=== PATIENT | male | born 1955 | race Caucasian/White ===

== ENCOUNTER 2018-06-02 03:03 | Inpatient (IN) | payer OTHER ==
[2018-06-02 03:13] VITALS: BMI 23.7
--- NOTE | 2018-06-02 03:30 | C.PDOC ---
History Of Present Illness 62 year old male with PMhx of CABG x4 vessels done at [facility] presents to the ED c/o worsening SOB, chest pain for the past 2 days. Patient states he did not come earlier for evaluation due to pain was coming and going. On arrival patient had a rapid irregular heart beat. Patient denies headache, blurry vision , nausea, vomit, diarrhea, weakness, numbness. Patient has all his doctors at [facility] none local. Chief Complaint (Nursing): Shortness Of Breath History Per: Patient History/Exam Limitations: no limitations Onset/Duration Of Symptoms: Days (2) Current Symptoms Are (Timing): Still Present Initiating Event: Upper Respiratory Illness Quality: Tightness Exacerbating Factor(s): Exertion Current Respiratory Medications: See Home Med List Associated Symptoms: Heart Racing Recent travel outside of the [place]: No Additional History Per: Patient Past Medical History Reviewed: Historical Data, Nursing Documentation, Vital Signs Vital Signs: Last Vital Signs Temp 97.3 F L 06/02/18 03:13 Pulse 99 H 06/02/18 03:54 Resp 22 06/02/18 03:54 BP 142/83 06/02/18 03:54 Pulse Ox 97 06/02/18 04:09 - Medical History PMH: Asthma, HTN, Hyperlipidemia Denies: Chronic Kidney Disease Surgical History: CABG - [facility] Procedures MEASURE OF CARDIAC SAMPL & PRESSURE, L HEART, PERC APPROACH (02/20/16) PLAIN RADIOGRAPHY OF LEFT HEART USING LOW OSMOLAR CONTRAST (02/20/16) Family History: States: Unknown Family Hx - Social History Hx Alcohol Use: Yes (twice a week) Hx Substance Use: Yes (Cocaine) - Immunization History Hx Tetanus Toxoid Vaccination: No Hx Influenza Vaccination: No Hx Pneumococcal Vaccination: No Review Of Systems Constitutional: Negative for: Fever, Chills Cardiovascular: Positive for: Chest Pain. Negative for: Palpitations Respiratory: Positive for: Shortness of Breath. Negative for: Cough Gastrointestinal: Negative for: Nausea, Vomiting Skin: Negative for: Rash Neurological: Negative for: Weakness, Numbness Physical Exam - Physical Exam Appears: Non-toxic, Other (Mild respiratory distress) Skin: Normal Color, Warm, Dry Head: Atraumatic, Normacephalic Eye(s): bilateral: Normal Inspection Oral Mucosa: Moist Throat: Normal, No Erythema, No Exudate Neck: Normal ROM, Supple Chest: Symmetrical Cardiovascular: Rhythm Irregular (irregularly irregular, tachy), JVD Respiratory: Decreased Breath Sounds, Accessory Muscle Use, Rales (bibasilar third the way up), No Rhonchi, No Wheezing Gastrointestinal/Abdominal: Soft, No Tenderness, No Guarding, No Rebound Extremity: Normal ROM, No Tenderness, Pedal Edema (2+ up to mid lower leg), Capillary Refill (< 2 seconds) Pulses: Left Dorsalis Pedis: Normal, Right Dorsalis Pedis: Normal Neurological/Psych: Oriented x3, Normal Speech Gait: Steady ED Course And Treatment - Laboratory Results Result Diagrams: 06/02/18 03:38 07 03:38 ECG: Interpreted By Me, Viewed By Me ECG Rhythm: Atrial Fibrillation Interpretation Of ECG: RVR, ST depression at leads V3 and V6 lateral ischemia O2 Sat by Pulse Oximetry: 97 (ON RA) Pulse Ox Interpretation: Normal - Radiology CXR: Interpreted by Me, Viewed By Me CXR Interpretation: Yes: Cardiomegaly (s/p median sternotomy), Other (mild pulmonary vascular congestion). No: Infiltrates Medical Decision Making Medical Decision Making: Impression: Afiv RVR Plan: * EKG * Labs * trop negative * BNP 4690 * cardizem 15 mg IVP * IV fluids * Aspirin 325 mg PO * Lasix 40 mg IVP * UA Disposition - Disposition Disposition: HOSPITALIZED Disposition Time: 04:19 Condition: FAIR Forms: [facility] (Amharic) - Clinical Impression Clinical Impression: Congestive heart failure (CHF), Atrial fibrillation - Scribe Statement The provider has reviewed the documentation as recorded by the Scribe Axel Kumar All medical record entries made by the Scribe were at my direction and personally dictated by me. I have reviewed the chart and agree that the record accurately reflects my personal performance of the history, physical exam, medical decision making, and the department course for this patient. I have also personally directed, reviewed, and agree with the discharge instructions and disposition.
[2018-06-02] MEDS ORDERED: Aspirin 325 mg EC Tablets PO STA (03:32)
[2018-06-02] MEDS ORDERED: Aspirin 325 mg EC Tablets PO ONE (03:39)
[2018-06-02 03:43] LABS: BASO # 0.1 K/uL (0.0-0.2); BASO % 0.7 % (0.0-2.0); EOS # 0.1 K/uL (0.0-0.7); EOS % 0.7 % (0.0-4.0); HEMOGLOBIN 10.9 g/dL (12.0-18.0); LYMPH # 0.8 K/uL (1.0-4.3); LYMPH % 10.2 % (20.0-40.0); MEAN CELL VOLUME 80.2 fL (80.0-94.0); MEAN CORPUSCULAR HEMOGLOBIN 25.6 pg (27.0-31.0); MEAN PLATELET VOLUME 8.5 fL (7.2-11.7); MONO % 13.8 % (0.0-10.0); NEUT # 5.5 K/uL (1.8-7.0); NEUT % 74.6 % (50.0-75.0); RBC 4.26 Mil/uL (4.40-5.90); RED CELL DISTRIBUTION WIDTH 18.1 % (11.5-14.5); WHITE BLOOD COUNT 7.4 K/uL (4.8-10.8)
[2018-06-02 03:54] LABS: ALB/GLOB RATIO 1.4 (1.0-2.1); ALBUMIN 3.8 g/dL (3.5-5.0); CALCIUM 9.2 mg/dl (8.6-10.4)
[2018-06-02 04:05] LABS: TROPONIN I 0.1 ng/mL (0.00-0.120)
[2018-06-02 04:16] LABS: URINE BILIRUBIN NEGATIVE (NEGATIVE); URINE BLOOD NEGATIVE (NEGATIVE); URINE CLARITY Clear (Clear); URINE COLOR Yellow (YELLOW); URINE GLUCOSE (UA) 3+ mg/dL (Normal); URINE LEUKOCYTE ESTERASE NEG Leu/uL (Negative); URINE PROTEIN NEGATIVE (NEGATIVE); URINE UROBILINOGEN NORMAL mg/dL (0.2-1.0)
[2018-06-02] MEDS ORDERED: Dextrose 50% SYRINGE Inj (50 ml) IV PRN (05:21)
[2018-06-02] MEDS ORDERED: Glucagon Recombinant 1 mg Inj IM PRN (05:21)
--- NOTE | 2018-06-02 05:26 | CP.PCM.HP ---
<CarlostristonSusy [email or web address] - Last Filed: 06/02/18 05:32> History of Present Illness - History of Present Illness History of Present Illness: HPI: Patient is a 62 year old male with a past medical history of CHF, asthma, HTN, HLD, DM, CABG, and BPH, who presents to the hospital with complaints of chest pain bilaterally, back pain, and bilateral arm pain, with associated shortness of breath and a productive cough (white phlegm) for the past 3 days. He states his symptoms worsen with respirations, he sleeps 2 pillows, and becomes short of breath after walking less than 1 block. He also complains of bilateral leg swelling for 3 days. He was recently hospitalized at [facility] for similar symptoms last week. He recently ran out of his "lasix, heart, and blood pressure medication" and has not taken these medications for the past 3-4 days. He also admits to using +1gram of cocaine 5 days ago. The patient also complains of one week of abdominal pain worse with eating, with associated burning in his chest and throat. Review of systems positive for chest pain, palpitations, sob, cough, headache, leg swelling, abdominal pain. The patient denies fevers, chills, sore throat, dysphagia, dizziness, changes in vision, nausea/vomiting, diarrhea, dysuria, hematuria, recent sick contacts/ illnesses. PMD: none PMHx: CHF, asthma, HTN, HLD, DM, CABG (4 vessels), and BPH Surg: CABG 10years ago, cholecystectomy, appendectomy, "stomach surgery" FamHx: denies SocHx: admits to 1/2ppd x25+ years; +cocaine use, 1-2 times monthly, last use 5 days ago; drinks "3 sips of beer 2 days ago" Allergies: PCN (unknown reaction) Medications: "lasix, diabetes medication 1000mg twice a day, medication for my pressure, my heart, high cholesterol, and prostate" Present on Admission - Present on Admission Any Indicators Present on Admission: No Review of Systems - Constitutional Constitutional: Headache. absent: Chills, Fever, Weakness - EENT Eyes: absent: Change in Vision Ears: absent: Dizziness - Cardiovascular Cardiovascular: Chest Pain, Chest Pain with Activity, Dyspnea, Dyspnea on Exertion, Irregular Heart Rhythm, Leg Edema, Palpitations, Radiating Pain (to back and arms), Rapid Heart Rate. absent: Diaphoresis - Respiratory Respiratory: Cough, Dyspnea, Dyspnea on Exertion, Pain on Inspiration, Pain with Coughing - Gastrointestinal Gastrointestinal: Abdominal Pain, Constipation. absent: Diarrhea, Hematemesis, Hematochezia, Nausea, Vomiting - Genitourinary Genitourinary: absent: Dysuria, Hematuria - Musculoskeletal Musculoskeletal: Back Pain - Integumentary Integumentary: Swelling (b/l LE). absent: Rash, Unusual Bruising - Neurological Neurological: Headaches. absent: Dizziness - Endocrine Endocrine: Palpitations - Hematologic/Lymphatic Hematologic: absent: Easy Bleeding, Easy Bruising Past Patient History - Infectious Disease Hx of Infectious Diseases: None - Tetanus Immunizations Tetanus Immunization: Unknown - Past Medical History & Family History Past Medical History?: Yes - Past Social History Smoking Status: Current Some Days Smoker - CARDIAC Hx Hypertension: Yes - PULMONARY Hx Asthma: Yes - NEUROLOGICAL Hx Neurological Disorder: No - HEENT Hx HEENT Problems: No - RENAL Hx Chronic Kidney Disease: No - ENDOCRINE/METABOLIC Hx Endocrine Disorders: No Hx Diabetes Mellitus Type 1: Yes - HEMATOLOGICAL/ONCOLOGICAL Hx Blood Disorders: No - INTEGUMENTARY Hx Dermatological Problems: No - MUSCULOSKELETAL/RHEUMATOLOGICAL Hx Musculoskeletal Disorders: No Hx Falls: Yes - GASTROINTESTINAL Hx Gastrointestinal Disorders: No - GENITOURINARY/GYNECOLOGICAL Hx Genitourinary Disorders: No - PSYCHIATRIC Hx Substance Use: Yes (Cocaine) - SURGICAL HISTORY Hx Coronary Artery Bypass Graft: Yes - ANESTHESIA Hx Anesthesia: Yes Hx Anesthesia Reactions: No Hx Malignant Hyperthermia: No Meds Allergies/Adverse Reactions: Allergies Allergy/AdvReac Type Severity Reaction Status Date / Time Penicillins Allergy Intermediate Verified 06/02/18 03:12 Physical Exam - Constitutional Appears: No Acute Distress - Head Exam Head Exam: ATRAUMATIC, NORMAL INSPECTION - Eye Exam Eye Exam: EOMI, Normal appearance, PERRL - ENT Exam ENT Exam: Mucous Membranes Moist - Neck Exam Neck exam: Positive for: Normal Inspection - Respiratory Exam Respiratory Exam: Decreased Breath Sounds, Rales (b/l lower lungs), Wheezes - Cardiovascular Exam Cardiovascular Exam: Tachycardia, Irregular Rhythm, +S1, +S2. absent: REGULAR RHYTHM, JVD - GI/Abdominal Exam GI & Abdominal Exam: Normal Bowel Sounds, Soft, Tenderness (epigastric with deep palpation). absent: Distended, Firm, Guarding, Mass - Extremities Exam Extremities exam: Positive for: normal capillary refill, pedal edema (pitting edema b/l up to knees), pedal pulses present. Negative for: tenderness - Neurological Exam Neurological exam: Alert, CN II-XII Intact, Oriented x3 - Psychiatric Exam Psychiatric exam: Normal Affect, Normal Mood - Skin Skin Exam: Dry, Intact, Normal Color, Warm Results - Vital Signs Recent Vital Signs: Last Vital Signs Temp 97.3 F L 06/02/18 03:13 Pulse 97 H 06/02/18 04:44 Resp 12 06/02/18 04:44 BP 135/88 06/02/18 04:44 Pulse Ox 99 06/02/18 04:44 - Labs Result Diagrams: 06/02/18 03:38 06/02/18 03:38 Labs: Laboratory Results - last 24 hr 06/02/18 06/02/18 06/02/18 03:38 03:38 04:11 WBC 7.4 D RBC 4.26 L Hgb 10.9 L Hct 34.1 L MCV 80.2 D MCH 25.6 L MCHC 32.0 L RDW 18.1 H Plt Count 168 MPV 8.5 Neut % (Auto) 74.6 Lymph % (Auto) 10.2 L [place] % (Auto) 13.8 H Eos % (Auto) 0.7 Baso % (Auto) 0.7 Neut # (Auto) 5.5 Lymph # (Auto) 0.8 L [place] # (Auto) 1.0 H Eos # (Auto) 0.1 Baso # (Auto) 0.1 Sodium 140 Potassium 4.7 Chloride 102 Carbon Dioxide 26 Anion Gap 17 BUN 46 H Creatinine 1.7 H Est GFR ( Amer) 50 Est GFR (Non-Af Amer) 41 Random Glucose 313 H Calcium 9.2 Total Bilirubin 2.2 H AST 82 H ALT 80 H D Alkaline Phosphatase 152 H Troponin I 0.1000 NT-Pro-B Natriuret Pep 4690 H Total Protein 6.5 Albumin 3.8 Globulin 2.7 Albumin/Globulin Ratio 1.4 Urine Color Yellow Urine Clarity Clear Urine pH 5.0 Ur Specific [place] 1.008 Urine Protein Negative Urine Glucose (UA) 3+ H Urine Ketones Negative Urine Blood Negative Urine Nitrate Negative Urine Bilirubin Negative Urine Urobilinogen Normal Ur Leukocyte Esterase Neg Urine WBC (Auto) 1 Urine RBC (Auto) < 1 Assessment & Plan - Assessment and Plan (Free Text) Plan: Chest pain, r/o ACS Hx of CABG Hx of cocaine abuse Troponinx1: negative, 0.1 EKG: afib w/rvr @134bpm F/u troponin & EKGs #2, #3 A1c: f/u Lipid panel: f/u TSH/Free T4: f/u UDS: f/u Cardiology consulted, Dr. Walker; help appreciated Medications: - ASA 81mg PO daily - Plavix 75mg PO daily - Crestor 2.5mg PO HS - Lisinopril 5mg PO daily - Norvasc 5mg PO daily Dyspnea Likely secondary to CHF exacerbation Hx of asthma CXR: f/u BNP: 4670 Lasix 40mg IV daily O2 via NC prn Cardiology consulted, Dr Walker; help appreciated Afib Admitted to telemetry Continue Cardizem drip Cardiology consulted, Dr Walker; help appreciated Continue to monitor DM Home medication: Metformin 1000mg PO BID Accuchecks Hypoglycemic protocol ISS-medium A1c: f/u Continue to monitor HTN Continue home medication: Norvsac 5mg PO daily, Lisinopril 5mg PO daily Continue to monitor on telemetry HLD Continue home medication: Crestor 2.5mg PO HS Lipid panel: f/u Prophylaxis DVT: no SCDs due to LE edema; Plavix GI: Pepcid 20mg po daily Low carb, heart healthy 2g Na diet <Abundio Lange - Last Filed: 06/02/18 06:31> Results - Vital Signs Recent Vital Signs: Last Vital Signs Temp 97.3 F L 06/02/18 03:13 Pulse 97 H 06/02/18 04:44 Resp 12 06/02/18 04:44 BP 135/88 06/02/18 04:44 Pulse Ox 99 06/02/18 04:44 - Labs Result Diagrams: 06/02/18 03:38 06/02/18 03:38 Labs: Laboratory Results - last 24 hr 06/02/18 06/02/18 06/02/18 03:38 03:38 04:11 WBC 7.4 D RBC 4.26 L Hgb 10.9 L Hct 34.1 L MCV 80.2 D MCH 25.6 L MCHC 32.0 L RDW 18.1 H Plt Count 168 MPV 8.5 Neut % (Auto) 74.6 Lymph % (Auto) 10.2 L [place] % (Auto) 13.8 H Eos % (Auto) 0.7 Baso % (Auto) 0.7 Neut # (Auto) 5.5 Lymph # (Auto) 0.8 L [place] # (Auto) 1.0 H Eos # (Auto) 0.1 Baso # (Auto) 0.1 Sodium 140 Potassium 4.7 Chloride 102 Carbon Dioxide 26 Anion Gap 17 BUN 46 H Creatinine 1.7 H Est GFR ( Amer) 50 Est GFR (Non-Af Amer) 41 Random Glucose 313 H Calcium 9.2 Total Bilirubin 2.2 H AST 82 H ALT 80 H D Alkaline Phosphatase 152 H Troponin I 0.1000 NT-Pro-B Natriuret Pep 4690 H Total Protein 6.5 Albumin 3.8 Globulin 2.7 Albumin/Globulin Ratio 1.4 Urine Color Yellow Urine Clarity Clear Urine pH 5.0 Ur Specific [place] 1.008 Urine Protein Negative Urine Glucose (UA) 3+ H Urine Ketones Negative Urine Blood Negative Urine Nitrate Negative Urine Bilirubin Negative Urine Urobilinogen Normal Ur Leukocyte Esterase Neg Urine WBC (Auto) 1 Urine RBC (Auto) < 1 Assessment & Plan - Date & Time Date: 06/02/18 (I have seen and examined the patient. I agree with the findings and plan of care as documented by Dr. Lindquist. Patient with chest pain, CHF exacerbation, and A fib with RVR. ROMIx3 with EKG. Aspirin and Statin. Continue home meds. Check UDS. Lasix IV. Continue Cardizem drip at current rate. Monitor for acute changes.) Time: 06:30 Attending/Attestation - Attestation I have personally seen and examined this patient.: Yes I have fully participated in the care of the patient.: Yes I have reviewed all pertinent clinical information: Yes
[2018-06-02 07:01] VITALS: RESP 20
[2018-06-02 07:03] LABS: BARBITURATES, UR NEGATIVE (NEGATIVE); BENZODIAZEPINES, UR NEGATIVE (NEGATIVE); OPIATES, UR NEGATIVE (NEGATIVE); PHENCYCLIDINE, UR NEGATIVE (NEGATIVE)
[2018-06-02 07:16] LABS: T4 11.1 ug/dL (5.5-11.0)
[2018-06-02] MEDS: (Novolin R) Insulin Human Regular 100 units/ml vial SC SCH ×4 (07:28→21:44)
[2018-06-02] MEDS ORDERED: (Novolin R) Insulin Human Regular 100 units/ml vial ONE ×2 (07:30→13:20)
--- NOTE | 2018-06-02 09:52 | RAD ---
PROCEDURE: CHEST RADIOGRAPH, 1 VIEW HISTORY: Chest pain COMPARISON: 08/13/2016. FINDINGS: LUNGS: The lungs are well inflated and clear. PLEURA: No pneumothorax or pleural fluid seen. CARDIOVASCULAR: There is severe cardiomegaly. Status post CABG. OSSEOUS STRUCTURES: No significant abnormalities. VISUALIZED UPPER ABDOMEN: Normal. OTHER FINDINGS: None. IMPRESSION: No active pulmonary disease. Severe cardiomegaly.
--- NOTE | 2018-06-02 13:30 | CP.PCM.PN ---
Subjective - Date & Time of Evaluation Date of Evaluation: 06/02/18 Time of Evaluation: 11:10 - Subjective Subjective: PGY-[address] Travis service Patient is seen and examined at bedside. Patient is sleepy and struggles to stay awake during encounter. Pt states feeling better compared to time of admission. Patient states chest pain and SOB is getting better. Patient denies Fever, chills, headache, Chest pain, nausea, vomiting, diarrhea or constipation. Patient is luxembourgish speaker. Objective - Vital Signs/Intake and Output Vital Signs (last 24 hours): Temp Pulse Resp BP Pulse Ox 98 F 73 20 124/91 H 97 06/02/18 09:50 06/02/18 09:50 06/02/18 09:50 06/02/18 09:50 06/02/18 09:50 Intake and Output: 06/02/18 06/02/18 06:59 18:59 Output Total 400 Balance -400 - Medications Medications: Current Medications Amlodipine Besylate (Norvasc) 5 mg PO DAILY [facility] Last Admin: 06/02/18 10:11 Dose: 5 mg Apixaban (Eliquis) 5 mg PO BID [facility] Last Admin: 06/02/18 12:08 Dose: 5 mg Aspirin (Aspirin Chewable) 81 mg PO DAILY [facility] Last Admin: 06/02/18 10:07 Dose: Not Given Clopidogrel Bisulfate (Plavix) 75 mg PO DAILY [facility] Last Admin: 06/02/18 10:12 Dose: 75 mg Dextrose (Dextrose 50% Inj) 0 ml IV STAT PRN; Protocol PRN Reason: Hypoglycemia Protocol Dextrose (Glutose 15) 0 gm PO ONCE PRN; Protocol PRN Reason: Hypoglycemia Protocol Furosemide (Lasix) 40 mg IVP DAILY [facility] Last Admin: 06/02/18 11:00 Dose: Not Given Glucagon (Glucagen Diagnostic Kit) 0 mg IM STAT PRN; Protocol PRN Reason: Hypoglycemia Protocol Dextrose (Dextrose 5% In Water 1000 Ml) 1,000 mls @ 0 mls/hr IV .Q0M PRN; Protocol; Per Protocol PRN Reason: Hypoglycemia Protocol Diltiazem HCl 125 mg/ Dextrose 125 mls @ 5 mls/hr IV .Q24H [facility] PRN Reason: 5 MG/HR Last Admin: 06/02/18 07:01 Dose: 5 mls/hr Insulin Human Regular (Novolin R) 0 unit SC ACHS [facility] PRN Reason: Protocol Last Admin: 06/02/18 13:00 Dose: 3 u Lisinopril (Zestril) 5 mg PO DAILY [facility] Last Admin: 06/02/18 10:12 Dose: 5 mg Pneumococcal Polyvalent Vaccine (Pneumovax 23 Vaccine) 0.5 ml IM .ONCE ONE Stop: 06/04/18 10:01 Rosuvastatin Calcium (Crestor) 2.5 mg PO HS [facility] - Labs Labs: 06/02/18 03:38 06/02/18 03:38 - Constitutional Appears: Non-toxic, No Acute Distress - Head Exam Head Exam: ATRAUMATIC, NORMAL INSPECTION, NORMOCEPHALIC - Eye Exam Eye Exam: EOMI, Normal appearance - Neck Exam Neck Exam: Full ROM - Respiratory Exam Respiratory Exam: Clear to Ausculation Bilateral, NORMAL BREATHING PATTERN - Cardiovascular Exam Cardiovascular Exam: REGULAR RHYTHM, +S1, +S2 - GI/Abdominal Exam GI & Abdominal Exam: Soft, Tenderness, Normal Bowel Sounds. absent: Distended, Firm Additional comments: abdominal pain - Extremities Exam Extremities Exam: Normal Inspection, Pedal Edema. absent: Tenderness - Neurological Exam Additional comments: Sleepy during examination - Psychiatric Exam Psychiatric exam: Normal Mood - Skin Skin Exam: Intact, Normal Color Assessment and Plan - Assessment and Plan (Free Text) Plan: Chest pain, r/o ACS Hx of CABG Hx of cocaine abuse Urine Drug screen : + cocaine metabolites Troponin x 2: negative. F/U troponin x 1 F/U Echo F/U CMP tomorrow, check Potassium levels EKG: afib w/rvr @134bpm EKG #2: afib with premature ventricular or abberrantly conducted complex, Left axis deviation, HR: 79 A1c: 10.2 Lipid panel: Trigycerides 60, Cholesterol 173, LDL 90, HDL 46 TSH/Free T4: 4.39/11.1 Cardiology consulted, Dr. Walker; help appreciated Medications: - ASA 81mg PO daily - Plavix 75mg PO daily - Crestor 2.5mg PO HS - Lisinopril 5mg PO daily - Norvasc 5mg PO daily Dyspnea Likely secondary to CHF exacerbation Hx of asthma CXR: significant cardiomegaly BNP: 4670 D/C Lasix drip, Start Lasix 40mg PO BID O2 via NC prn Cardiology consulted, Dr Walker; help appreciated Afib Admitted to telemetry D/C Eliz alvarado. Start Cardizem 30 mg PO Qdaily Cardiology consulted, Dr Walker; help appreciated Continue to monitor DM Home medication: Metformin 1000mg PO BID Accuchecks Hypoglycemic protocol ISS-medium A1c: f/u Continue to monitor HTN Continue home medication: Norvsac 5mg PO daily, Lisinopril 5mg PO daily Continue to monitor on telemetry HLD Continue home medication: Crestor 2.5mg PO HS Lipid panel: f/u Prophylaxis DVT: no SCDs due to LE edema; Plavix GI: Pepcid 20mg po daily Low carb, heart healthy 2g Na diet
[2018-06-02 15:01] LABS: CK-MB 3.37 ng/mL (0.0-3.38); TROPONIN I 0.093 ng/mL (0.00-0.120)
[2018-06-02 17:53] LABS: TROPONIN I 0.089 ng/mL (0.00-0.120)
--- NOTE | 2018-06-02 19:46 | CARD ---
APPROVED REPORT EKG Measurement Heart [id number] <Conclusion> Atrial fibrillation with premature ventricular or aberrantly conducted complexes Left axis deviation ST & T wave abnormality, consider lateral ischemia Prolonged QT Abnormal ECG
--- NOTE | 2018-06-02 19:46 | CARD ---
APPROVED REPORT EKG Measurement Heart [id number] <Conclusion> Atrial fibrillation with rapid ventricular response Left axis deviation ST & T wave abnormality, consider lateral ischemia Abnormal ECG
--- NOTE | 2018-06-02 19:47 | CARD ---
APPROVED REPORT EKG Measurement Heart [id number] <Conclusion> Atrial fibrillation with rapid ventricular response Left axis deviation Nonspecific ST and T wave abnormality Abnormal ECG
[2018-06-02] MEDS: Rosuvastatin Calcium 2.5 mg Tab PO SCH (21:41)
--- NOTE | 2018-06-03 08:09 | CP.PCM.CON ---
History of Present Illness - History of Present Illness History of Present Illness: CC afib w/ sob HPI Patient is a 62 year old male with a past medical history of CHF, asthma, HTN, HLD, DM, CABG, and BPH, who presents to the hospital with complaints of chest pain bilaterally, back pain, and bilateral arm pain, with associated shortness of breath and a productive cough (white phlegm) for the past 3 days. He states his symptoms worsen with respirations, he sleeps 2 pillows, and becomes short of breath after walking less than 1 block. He also complains of bilateral leg swelling for 3 days. He was recently hospitalized at [facility] for similar symptoms last week. He recently ran out of his "lasix, heart, and blood pressure medication" and has not taken these medications for the past 3-4 days. He also admits to using +1gram of cocaine 5 days ago. The patient also complains of one week of abdominal pain worse with eating, with associated burning in his chest and throat. Review of systems positive for chest pain, palpitations, sob, cough, headache, leg swelling, abdominal pain. The patient denies fevers, chills, sore throat, dysphagia, dizziness, changes in vision, nausea/vomiting, diarrhea, dysuria, hematuria, recent sick contacts/ illnesses. Review of Systems - Constitutional Constitutional: Weakness - Cardiovascular Cardiovascular: Irregular Heart Rhythm - Respiratory Respiratory: Cough, Dyspnea - Gastrointestinal Gastrointestinal: absent: As Per HPI, Abdominal Pain, Belching, Bloating, Change in Bowel Habits, Change in Stool Character, Coffee Ground Emesis, Constipation, Cramping, Diarrhea, Dyspepsia, Dysphagia, Early Satiety, Excessive Flatus, Fecal Incontinence, Heartburn, Hematemesis, Hematochezia, Loose Stools, Melena, Nausea, Odynophagia, Temesmus, Vomiting, Other Past Patient History - Infectious Disease Hx of Infectious Diseases: None - Tetanus Immunizations Tetanus Immunization: Unknown - Past Medical History & Family History Past Medical History?: Yes - Past Social History Smoking Status: Current Some Days Smoker - CARDIAC Hx Hypertension: Yes - PULMONARY Hx Asthma: Yes - NEUROLOGICAL Hx Neurological Disorder: No - HEENT Hx HEENT Problems: No - RENAL Hx Chronic Kidney Disease: No - ENDOCRINE/METABOLIC Hx Endocrine Disorders: No Hx Diabetes Mellitus Type 1: Yes - HEMATOLOGICAL/ONCOLOGICAL Hx Blood Disorders: No - INTEGUMENTARY Hx Dermatological Problems: No - MUSCULOSKELETAL/RHEUMATOLOGICAL Hx Falls: Yes - GASTROINTESTINAL Hx Gastrointestinal Disorders: No - GENITOURINARY/GYNECOLOGICAL Hx Genitourinary Disorders: No - PSYCHIATRIC Hx Substance Use: Yes - SURGICAL HISTORY Hx Coronary Artery Bypass Graft: Yes - ANESTHESIA Hx Anesthesia: Yes Hx Anesthesia Reactions: No Hx Malignant Hyperthermia: No Meds Allergies/Adverse Reactions: Allergies Allergy/AdvReac Type Severity Reaction Status Date / Time Penicillins Allergy Intermediate Verified 06/02/18 03:12 - Medications Medications: Current Medications Amlodipine Besylate (Norvasc) 5 mg PO DAILY [facility] Last Admin: 06/02/18 10:11 Dose: 5 mg Apixaban (Eliquis) 5 mg PO BID [facility] Last Admin: 06/02/18 17:34 Dose: 5 mg Aspirin (Aspirin Chewable) 81 mg PO DAILY [facility] Last Admin: 06/02/18 10:07 Dose: Not Given Clopidogrel Bisulfate (Plavix) 75 mg PO DAILY [facility] Last Admin: 06/02/18 10:12 Dose: 75 mg Dextrose (Dextrose 50% Inj) 0 ml IV STAT PRN; Protocol PRN Reason: Hypoglycemia Protocol Dextrose (Glutose 15) 0 gm PO ONCE PRN; Protocol PRN Reason: Hypoglycemia Protocol Diltiazem HCl (Cardizem) 30 mg PO QID [facility] Last Admin: 06/02/18 21:47 Dose: 30 mg Furosemide (Lasix) 40 mg PO BID [facility] Glucagon (Glucagen Diagnostic Kit) 0 mg IM STAT PRN; Protocol PRN Reason: Hypoglycemia Protocol Dextrose (Dextrose 5% In Water 1000 Ml) 1,000 mls @ 0 mls/hr IV .Q0M PRN; Protocol; Per Protocol PRN Reason: Hypoglycemia Protocol Insulin Human Regular (Novolin R) 0 unit SC [facility] PRN Reason: Protocol Last Admin: 06/02/18 21:44 Dose: 2 u Lisinopril (Zestril) 5 mg PO DAILY [facility] Last Admin: 06/02/18 10:12 Dose: 5 mg Pneumococcal Polyvalent Vaccine (Pneumovax 23 Vaccine) 0.5 ml IM .ONCE ONE Stop: 06/04/18 10:01 Rosuvastatin Calcium (Crestor) 2.5 mg PO HS [facility] Last Admin: 06/02/18 21:41 Dose: 2.5 mg Physical Exam - Constitutional Appears: Non-toxic - Head Exam Head Exam: NORMAL INSPECTION - Eye Exam Eye Exam: absent: Scleral icterus - Neck Exam Neck exam: Positive for: Full Rom - Respiratory Exam Respiratory Exam: Prolonged Expiratory Phase, Rhonchi - Cardiovascular Exam Cardiovascular Exam: Irregular Rhythm - GI/Abdominal Exam GI & Abdominal Exam: Soft - Extremities Exam Extremities exam: Negative for: calf tenderness, pedal edema - Neurological Exam Neurological exam: Alert, Oriented x3 Results - Vital Signs Recent Vital Signs: Last Vital Signs Temp 97.8 F 06/03/18 00:00 Pulse 58 L 06/03/18 00:00 Resp 20 06/03/18 00:00 BP 100/59 L 06/03/18 00:00 Pulse Ox 95 06/03/18 00:00 - Labs Result Diagrams: 06/03/18 11:08 06/03/18 11:08 Labs: Laboratory Results - last 24 hr 06/02/18 06/02/18 06/02/18 05:18 10:35 14:23 POC Glucose (mg/dL) 219 H Hemoglobin A1c 10.2 H Total Creatine Kinase 180 H CK-MB (Mass) 3.37 Troponin I 0.0930 06/02/18 06/02/18 06/02/18 16:57 17:09 19:54 POC Glucose (mg/dL) 216 H 365 H Hemoglobin A1c Total Creatine Kinase 152 CK-MB (Mass) 3.00 Troponin I 0.0890 06/02/18 06/03/18 21:31 06:22 POC Glucose (mg/dL) 340 H 259 H Hemoglobin A1c Total Creatine Kinase CK-MB (Mass) Troponin I Assessment & Plan - Assessment and Plan (Free Text) Assessment: Atrial fibrillation with RVR r/o Pulmonary embolism COPD CHF Plan: VQ scan Control heart rate Anticoagulation ECHO Lasix, ARB's, Carvedilol, Anticoagulation - Date & Time Date: 06/03/18 Time: 09:10
[2018-06-03] MEDS: (Novolin R) Insulin Human Regular 100 units/ml vial SC SCH ×5 (08:30→22:56)
[2018-06-03] MEDS: Albuterol-Ipratrop 3 mg / 0.5 (3 ml) UD INH SCH ×3 (08:45→20:22)
--- NOTE | 2018-06-03 11:12 | NM ---
Date of service: 06/03/2018 COMPARISON: June 02, 2018. TECHNIQUE: 6.2 mCi technetium 99-m Xe-133 Gas. 3.4 mCI technetium 99-m MAA administered intravenously. FINDINGS: VENTILATION COMPONENT: Normal. PERFUSION COMPONENT: Heterogeneous distribution of radionuclide. No geographic, segmental, lobar abnormalities apparent on the present examination. IMPRESSION: Low probability ventilation perfusion scan for pulmonary embolism.
[2018-06-03 11:19] LABS: BASO % 0.6 % (0.0-2.0); EOS # 0.2 K/uL (0.0-0.7); EOS % 2.9 % (0.0-4.0); HEMOGLOBIN 10.9 g/dL (12.0-18.0); LYMPH # 0.6 K/uL (1.0-4.3); LYMPH % 9.3 % (20.0-40.0); MEAN CELL VOLUME 81.9 fL (80.0-94.0); MEAN CORPUSCULAR HEMOGLOBIN 26.4 pg (27.0-31.0); MEAN CORPUSCULAR HGB CONC 32.2 g/dL (33.0-37.0); MEAN PLATELET VOLUME 9.1 fL (7.2-11.7); MONO # 0.6 K/uL (0.0-0.8); MONO % 8.9 % (0.0-10.0); NEUT # 5.3 K/uL (1.8-7.0); NEUT % 78.3 % (50.0-75.0); PLATELET COUNT 173 K/uL (130-400); RBC 4.12 Mil/uL (4.40-5.90); WHITE BLOOD COUNT 6.8 K/uL (4.8-10.8)
[2018-06-03 11:38] LABS: ALB/GLOB RATIO 1.6 (1.0-2.1); ALBUMIN 3.8 g/dL (3.5-5.0); ALT/SGPT 70 U/L (21-72); AST/SGOT 54 U/L (17-59); BLOOD UREA NITROGEN 39 mg/dL (9-20); CALCIUM 9.3 mg/dl (8.6-10.4); GFR AFRICAN-AMERICAN > 60; GFR NON-AFRICAN AMERICAN 52
[2018-06-03 11:42] LABS: ANISOCYTOSIS SLIGHT; EOSINOPHIL 3 % (0-4); HYPOCHROMIC SLIGHT; LYMPHOCYTE 10 % (20-40); MONOCYTE 8 % (0-10); NEUTROPHIL 79 % (50-75); PLATELET ESTIMATE NORMAL (NORMAL); TOTAL CELLS COUNTED 100
[2018-06-03 11:43] LABS: OVALOCYTES SLIGHT; POIKILOCYTOSIS SLIGHT
[2018-06-03 11:44] LABS: BURR CELLS SLIGHT
--- NOTE | 2018-06-03 18:30 | CP.PCM.PN ---
Subjective - Date & Time of Evaluation Date of Evaluation: 06/03/18 Time of Evaluation: 09:15 Objective - Vital Signs/Intake and Output Vital Signs (last 24 hours): Temp Pulse Resp BP Pulse Ox 97.2 F L 96 H 20 129/66 95 06/03/18 16:00 06/03/18 16:00 06/03/18 16:00 06/03/18 16:00 06/03/18 16:00 Intake and Output: 06/03/18 06/03/18 06:59 18:59 Output Total 350 Balance -350 - Medications Medications: Current Medications Albuterol/Ipratropium (Duoneb 3 Mg/0.5 Mg (3 Ml) Ud) 3 ml INH RQ6 [facility] Last Admin: 06/03/18 14:01 Dose: 3 ml Amlodipine Besylate (Norvasc) 5 mg PO DAILY [facility] Last Admin: 06/03/18 09:11 Dose: 5 mg Apixaban (Eliquis) 5 mg PO BID [facility] Last Admin: 06/03/18 09:11 Dose: 5 mg Aspirin (Aspirin Chewable) 81 mg PO DAILY [facility] Last Admin: 06/03/18 09:10 Dose: 81 mg Clopidogrel Bisulfate (Plavix) 75 mg PO DAILY [facility] Last Admin: 06/03/18 09:11 Dose: 75 mg Dextrose (Dextrose 50% Inj) 0 ml IV STAT PRN; Protocol PRN Reason: Hypoglycemia Protocol Dextrose (Glutose 15) 0 gm PO ONCE PRN; Protocol PRN Reason: Hypoglycemia Protocol Furosemide (Lasix) 60 mg PO BID [facility] Glucagon (Glucagen Diagnostic Kit) 0 mg IM STAT PRN; Protocol PRN Reason: Hypoglycemia Protocol Guaifenesin (Mucinex La) 600 mg PO BID [facility] Dextrose (Dextrose 5% In Water 1000 Ml) 1,000 mls @ 0 mls/hr IV .Q0M PRN; Protocol; Per Protocol PRN Reason: Hypoglycemia Protocol Insulin Human Regular (Novolin R) 0 unit SC [facility] PRN Reason: Protocol Last Admin: 06/03/18 11:31 Dose: 10 u Lisinopril (Zestril) 5 mg PO DAILY [facility] Last Admin: 06/03/18 09:11 Dose: 5 mg Pneumococcal Polyvalent Vaccine (Pneumovax 23 Vaccine) 0.5 ml IM .ONCE ONE Stop: 06/04/18 10:01 Rosuvastatin Calcium (Crestor) 2.5 mg PO HS [facility] Last Admin: 06/02/18 21:41 Dose: 2.5 mg - Labs Labs: 06/03/18 11:08 06/03/18 11:08
--- NOTE | 2018-06-03 21:16 | CP.PCM.PN ---
Subjective - Date & Time of Evaluation Date of Evaluation: 06/03/18 Time of Evaluation: 09:00 - Subjective Subjective: PGY-[address] Jonah Travis service PT is seen and examined at bedside. Patient reports no acute events overnight. Patient is in no acute distress. Patient states chest pain and shortness of breath have improved. Patient admits to cough with white phlegm. Patient denies weakness, fever, chills, palpitations, Nausea, vomiting, constipation or diarrhea. Patient admits to not having difficulty passing urine. Objective - Vital Signs/Intake and Output Vital Signs (last 24 hours): Temp Pulse Resp BP Pulse Ox 97.2 F L 96 H 20 129/66 95 06/03/18 16:00 06/03/18 16:00 06/03/18 16:00 06/03/18 16:00 06/03/18 16:00 - Medications Medications: Current Medications Albuterol/Ipratropium (Duoneb 3 Mg/0.5 Mg (3 Ml) Ud) 3 ml INH RQ6 [facility] Last Admin: 06/03/18 20:22 Dose: 3 ml Amlodipine Besylate (Norvasc) 5 mg PO DAILY [facility] Last Admin: 06/03/18 09:11 Dose: 5 mg Apixaban (Eliquis) 5 mg PO BID [facility] Last Admin: 06/03/18 09:11 Dose: 5 mg Aspirin (Aspirin Chewable) 81 mg PO DAILY [facility] Last Admin: 06/03/18 09:10 Dose: 81 mg Dextrose (Dextrose 50% Inj) 0 ml IV STAT PRN; Protocol PRN Reason: Hypoglycemia Protocol Dextrose (Glutose 15) 0 gm PO ONCE PRN; Protocol PRN Reason: Hypoglycemia Protocol Furosemide (Lasix) 60 mg PO BID [facility] Glucagon (Glucagen Diagnostic Kit) 0 mg IM STAT PRN; Protocol PRN Reason: Hypoglycemia Protocol Guaifenesin (Mucinex La) 600 mg PO BID [facility] Dextrose (Dextrose 5% In Water 1000 Ml) 1,000 mls @ 0 mls/hr IV .Q0M PRN; Protocol; Per Protocol PRN Reason: Hypoglycemia Protocol Insulin Human Regular (Novolin R) 0 unit SC [facility] PRN Reason: Protocol Last Admin: 06/03/18 11:31 Dose: 10 u Lisinopril (Zestril) 5 mg PO DAILY [facility] Last Admin: 06/03/18 09:11 Dose: 5 mg Pneumococcal Polyvalent Vaccine (Pneumovax 23 Vaccine) 0.5 ml IM .ONCE ONE Stop: 06/04/18 10:01 Rosuvastatin Calcium (Crestor) 2.5 mg PO HS [facility] Last Admin: 06/02/18 21:41 Dose: 2.5 mg - Labs Labs: 06/03/18 11:08 06/03/18 11:08 - Constitutional Appears: Well, Non-toxic, No Acute Distress - Head Exam Head Exam: ATRAUMATIC, NORMAL INSPECTION, NORMOCEPHALIC - Eye Exam Eye Exam: EOMI, Normal appearance, PERRL - Neck Exam Neck Exam: Full ROM, Normal Inspection - Respiratory Exam Respiratory Exam: Clear to Ausculation Bilateral, NORMAL BREATHING PATTERN. absent: Rales, Rhonchi, Wheezes - Cardiovascular Exam Cardiovascular Exam: REGULAR RHYTHM, +S1, +S2 - GI/Abdominal Exam GI & Abdominal Exam: Soft, Normal Bowel Sounds. absent: Distended, Firm, Rigid , Tenderness - Extremities Exam Additional comments: ankle edema in bilateral lower extremities - Back Exam Back Exam: Full ROM - Neurological Exam Neurological Exam: Alert, Awake - Psychiatric Exam Psychiatric exam: Normal Affect, Normal Mood - Skin Skin Exam: Dry, Intact Assessment and Plan - Assessment and Plan (Free Text) Plan: Plan: Chest pain, resolved Hx of CABG Hx of cocaine abuse Urine Drug screen : + cocaine metabolites Troponin x 2: negative. F/U troponin x 1 F/U Echo to be done 06/04 F/U CMP tomorrow, check Potassium levels EKG: afib w/rvr @134bpm EKG #2: afib with premature ventricular or abberrantly conducted complex, Left axis deviation, HR: 79 A1c: 10.2 Lipid panel: Trigycerides 60, Cholesterol 173, LDL 90, HDL 46 TSH/Free T4: 4.39/11.1 Cardiology consulted, Dr. Walker; help appreciate D/C Plavix 75 mg PO Qdaily as per Dr Walker rechakeem. Medications: - ASA 81mg PO daily - Crestor 2.5mg PO HS - Lisinopril 5mg PO daily - Norvasc 5mg PO daily Dyspnea secondary to CHF exarcerbation Hx of asthma CXR: significant cardiomegaly BNP: 4670 06/03 BUN: 39 D/C Lasix 40mg PO BID, Start Lasix 60mg PO BID O2 via NC prn Cardiology consulted, Dr Walker: Pt will go for Echo and Lexiscan tomorrow 06/04 in am. Afib Admitted to telemetry D/C Diltiazem due to low Heart rate. Cardiology consulted, Dr Walker; help appreciated Meds: ASA 81mg PO daily, Eliquis 5mg PO BID Continue to monitor DM Home medication: Metformin 1000mg PO BID Accuchecks Hypoglycemic protocol ISS-medium A1c: 10.2 Continue to monitor HTN Continue home medication: Norvsac 5mg PO daily, Lisinopril 5mg PO daily Continue to monitor on telemetry HLD Continue home medication: Crestor 2.5mg PO HS Lipid panel: Trigycerides 60, Cholesterol 173, LDL 90, HDL 46 Cough CXray 06/02: no active pulmonary disease Mucinex 600 mg PO BID Prophylaxis DVT: no SCDs due to LE edema; Eliquis 5mg PO BID GI: Pepcid 20mg po daily Low carb, heart healthy 2g Na diet
[2018-06-03] MEDS: guaiFENesin 600 mg ER Tab PO SCH (22:16)
[2018-06-03] MEDS: Rosuvastatin Calcium 2.5 mg Tab PO SCH (22:17)
--- NOTE | 2018-06-04 00:22 | CARD ---
APPROVED REPORT Date of service: 06/03/2018 EXAM: Two-dimensional and M-mode echocardiogram with Doppler and color Doppler. Other Information Quality : GoodRhythm : INDICATION LV Function:Systolic Chest Pain Congestive Heart Failure RISK FACTORS Hypertension Diabetes 2D DIMENSIONS IVSd0.9 (0.7-1.1cm)LVDd5.8 (3.9-5.9cm) PWd0.8 (0.7-1.1cm)LVDs4.6 (2.5-4.0cm) FS (%) 21.3 %LVEF (%)45.0 (>50%) M-Mode DIMENSIONS Left Atrium (MM)4.98 (2.5-4.0cm)IVSd1.01 (0.7-1.1cm) Aortic Root3.49 (2.2-3.7cm)LVDd6.76 (4.0-5.6cm) Aortic Cusp Exc.1.97 (1.5-2.0cm)PWd0.89 (0.7-1.1cm) FS (%) 29 %LVDs4.78 (2.0-3.8cm) LVEF (%)45 (>50%) Mitral Valve MV E Qtysgovx143.1cm/sE/A ratio0.0 TDI E/Lateral E'0.0E/Medial E'0.0 Tricuspid Valve TR Peak [id number]/sTR Peak Gr.[id number] LEFT VENTRICLE The left ventricle is normal size. There is normal left ventricular wall thickness. Left ventricle systolic function is mildly impaired. The Ejection Fraction is 45-50%. There is hypokinesis in the mid-inferoseptal wall. Transmitral Doppler flow pattern is Grade II-pseudonormal filling dynamics. There is no ventricular septal defect visualized. RIGHT VENTRICLE The right ventricle is normal size. The right ventricular systolic function is normal. ATRIA The left atrium is mildly dilated. The right atrium size is normal. AORTIC VALVE The aortic valve is mildly sclerotic. The aortic valve is tri-cuspid. No aortic regurgitation is present. There is no aortic valvular stenosis. MITRAL VALVE Mitral annular calcification is moderate. There is no evidence of mitral valve prolapse. Mitral regurgitation is moderate to severe. ERO 0.9 cm TRICUSPID VALVE The tricuspid valve is normal in structure. There is moderate to severe tricuspid regurgitation. Right ventricular systolic pressure is estimated at greater than 60 mmHg. There is severe pulmonary hypertension. PULMONIC VALVE The pulmonic valve is not well visualized. There is trace pulmonic valvular regurgitation. GREAT VESSELS The aortic root is normal in size. The ascending aorta is normal in size. The IVC is dilated. PERICARDIAL EFFUSION There is no pericardial effusion. <Conclusion> Left ventricle systolic function is mildly impaired. The Ejection Fraction is 45-50%. There is hypokinesis in the mid-inferoseptal wall. Transmitral Doppler flow pattern is Grade II-pseudonormal filling dynamics. Mitral regurgitation is moderate to severe. ERO 0.9 cm There is severe pulmonary hypertension.
--- NOTE | 2018-06-04 01:09 | CARD ---
APPROVED REPORT Date of service: 06/02/2018 EKG Measurement Heart [id number] <Conclusion> Atrial fibrillation with slow ventricular response with premature ventricular or aberrantly conducted complexes Left axis deviation ST & T wave abnormality, consider anterolateral ischemia Prolonged QT Abnormal ECG
[2018-06-04] MEDS: Albuterol-Ipratrop 3 mg / 0.5 (3 ml) UD INH SCH ×3 (01:42→14:23)
--- NOTE | 2018-06-04 06:54 | CP.PCM.PN ---
Subjective - Date & Time of Evaluation Date of Evaluation: 06/04/18 Time of Evaluation: 06:53 - Subjective Subjective: PGY-[address] Travis service Patient is seen and examined at bedside. Patient complains of chest pain and bilateral arm pain. Patient admits to feeling a pressure pain in all his fingers. Patient admits to burning sensation down his throat, as well as cough with white phlegm. Patient states he is urinating a lot this morning. Patients admits to mild dizziness and some SOB. Patient continues to complain of upper stomach pain. Patient denies fevers, chills, nausea, vomiting, headache, swelling, urinary incontinence, diarrhea or constipation. Objective - Vital Signs/Intake and Output Vital Signs (last 24 hours): Temp Pulse Resp BP Pulse Ox 97.2 F L 86 20 158/90 H 95 06/03/18 16:00 06/03/18 23:40 06/03/18 16:00 06/03/18 22:17 06/03/18 16:00 - Medications Medications: Current Medications Albuterol/Ipratropium (Duoneb 3 Mg/0.5 Mg (3 Ml) Ud) 3 ml INH RQ6 [facility] Last Admin: 06/04/18 01:42 Dose: Not Given Amlodipine Besylate (Norvasc) 5 mg PO DAILY [facility] Last Admin: 06/03/18 09:11 Dose: 5 mg Apixaban (Eliquis) 5 mg PO BID [facility] Last Admin: 06/03/18 22:16 Dose: 5 mg Aspirin (Aspirin Chewable) 81 mg PO DAILY [facility] Last Admin: 06/03/18 09:10 Dose: 81 mg Dextrose (Dextrose 50% Inj) 0 ml IV STAT PRN; Protocol PRN Reason: Hypoglycemia Protocol Dextrose (Glutose 15) 0 gm PO ONCE PRN; Protocol PRN Reason: Hypoglycemia Protocol Furosemide (Lasix) 60 mg PO BID [facility] Last Admin: 06/03/18 22:17 Dose: 60 mg Glucagon (Glucagen Diagnostic Kit) 0 mg IM STAT PRN; Protocol PRN Reason: Hypoglycemia Protocol Guaifenesin (Mucinex La) 600 mg PO BID [facility] Last Admin: 06/03/18 22:16 Dose: 600 mg Dextrose (Dextrose 5% In Water 1000 Ml) 1,000 mls @ 0 mls/hr IV .Q0M PRN; Protocol; Per Protocol PRN Reason: Hypoglycemia Protocol Insulin Human Regular (Novolin R) 0 unit SC [facility] PRN Reason: Protocol Last Admin: 06/03/18 22:56 Dose: Not Given Lisinopril (Zestril) 5 mg PO DAILY [facility] Last Admin: 06/03/18 09:11 Dose: 5 mg Pneumococcal Polyvalent Vaccine (Pneumovax 23 Vaccine) 0.5 ml IM .ONCE ONE Stop: 06/04/18 10:01 Rosuvastatin Calcium (Crestor) 2.5 mg PO HS [facility] Last Admin: 06/03/18 22:17 Dose: 2.5 mg - Labs Labs: 06/03/18 11:08 06/03/18 11:08 - Constitutional Appears: Well, Toxic, No Acute Distress - Head Exam Head Exam: ATRAUMATIC, NORMAL INSPECTION, NORMOCEPHALIC - Eye Exam Eye Exam: EOMI, Normal appearance, PERRL - Neck Exam Neck Exam: Full ROM, Normal Inspection - Respiratory Exam Respiratory Exam: Decreased Breath Sounds, NORMAL BREATHING PATTERN. absent: Rales, Rhonchi, Wheezes Additional comments: decreased breath sounds on right upper lobe - Cardiovascular Exam Cardiovascular Exam: Irregular Rhythm, +S1, +S2 - GI/Abdominal Exam GI & Abdominal Exam: Soft, Tenderness, Normal Bowel Sounds. absent: Distended, Firm, Guarding Additional comments: diffuse abdominal tenderness - Extremities Exam Extremities Exam: Full ROM, Normal Capillary Refill, Normal Inspection. absent : Calf Tenderness, Pedal Edema, Tenderness - Back Exam Back Exam: Full ROM - Neurological Exam Neurological Exam: Alert, Awake - Psychiatric Exam Psychiatric exam: Normal Affect, Normal Mood - Skin Skin Exam: Dry, Intact
[2018-06-04 08:17] VITALS: TEMP 97.5; O2SAT 97
[2018-06-04] MEDS: (Novolin R) Insulin Human Regular 100 units/ml vial SC SCH ×2 (08:30→12:30)
[2018-06-04 08:55] VITALS: PULSE 85
[2018-06-04 09:03] LABS: BASO % 0.7 % (0.0-2.0); EOS # 0.2 K/uL (0.0-0.7); EOS % 3.5 % (0.0-4.0); HEMOGLOBIN 10.6 g/dL (12.0-18.0); LYMPH # 0.9 K/uL (1.0-4.3); LYMPH % 15.3 % (20.0-40.0); MEAN CELL VOLUME 80.4 fL (80.0-94.0); MEAN CORPUSCULAR HEMOGLOBIN 26.8 pg (27.0-31.0); MEAN CORPUSCULAR HGB CONC 33.3 g/dL (33.0-37.0); MEAN PLATELET VOLUME 8.6 fL (7.2-11.7); MONO # 0.7 K/uL (0.0-0.8); MONO % 12.5 % (0.0-10.0); NEUT # 3.8 K/uL (1.8-7.0); NRBC % 0.1 % (0.0-2.0); RBC 3.94 Mil/uL (4.40-5.90); RED CELL DISTRIBUTION WIDTH 18.1 % (11.5-14.5); WHITE BLOOD COUNT 5.6 K/uL (4.8-10.8)
[2018-06-04 09:23] LABS: ALB/GLOB RATIO 1.2 (1.0-2.1); ALBUMIN 3.4 g/dL (3.5-5.0); ALT/SGPT 55 U/L (21-72); AST/SGOT 30 U/L (17-59); BLOOD UREA NITROGEN 32 mg/dL (9-20); CALCIUM 8.8 mg/dl (8.6-10.4); GFR AFRICAN-AMERICAN > 60; GFR NON-AFRICAN AMERICAN 56
[2018-06-04] MEDS ORDERED: Pneumococcal 23-Valent Vaccine IM ONE (10:00)
[2018-06-04] MEDS: guaiFENesin 600 mg ER Tab PO SCH (10:01)
[2018-06-04 10:29] VITALS: BP 140/75
[2018-06-04] MEDS ORDERED: Bismuth Subsalicylate 262 mg Chew Tab PO SCH (12:00)
--- NOTE | 2018-06-04 15:56 | CP.PCM.DIS ---
Provider - Provider Date of Admission: 06/02/18 04:12 Attending physician: Jonah Travis MD Time Spent in preparation of Discharge (in minutes): 35 Diagnosis - Discharge Diagnosis (1) Atrial fibrillation Status: Acute (2) Chest pain Status: Acute (3) Congestive heart failure (CHF) Status: Acute (4) Dyspnea Status: Acute (5) Diabetes mellitus Status: Chronic (6) Hypertension Status: Chronic Hospital Course - Lab Results Lab Results: Most Recent Lab Values WBC 5.6 K/uL (4.8-10.8) 06/04/18 08:49 RBC 3.94 Mil/uL (4.40-5.90) L 06/04/18 08:49 Hgb 10.6 g/dL (12.0-18.0) L 06/04/18 08:49 Hct 31.7 % (35.0-51.0) L 06/04/18 08:49 MCV 80.4 fL (80.0-94.0) 06/04/18 08:49 MCH 26.8 pg (27.0-31.0) L 06/04/18 08:49 MCHC 33.3 g/dL (33.0-37.0) 06/04/18 08:49 RDW 18.1 % (11.5-14.5) H 06/04/18 08:49 Plt Count 182 K/uL (130-400) 06/04/18 08:49 MPV 8.6 fL (7.2-11.7) 06/04/18 08:49 Neut % (Auto) 68.0 % (50.0-75.0) 06/04/18 08:49 Lymph % (Auto) 15.3 % (20.0-40.0) L 06/04/18 08:49 [place] % (Auto) 12.5 % (0.0-10.0) H 06/04/18 08:49 Eos % (Auto) 3.5 % (0.0-4.0) 06/04/18 08:49 Baso % (Auto) 0.7 % (0.0-2.0) 06/04/18 08:49 Neut # (Auto) 3.8 K/uL (1.8-7.0) 06/04/18 08:49 Lymph # (Auto) 0.9 K/uL (1.0-4.3) L 06/04/18 08:49 [place] # (Auto) 0.7 K/uL (0.0-0.8) 06/04/18 08:49 Eos # (Auto) 0.2 K/uL (0.0-0.7) 06/04/18 08:49 Baso # (Auto) 0.0 K/uL (0.0-0.2) 06/04/18 08:49 Neutrophils % (Manual) 79 % (50-75) H 06/03/18 11:08 Lymphocytes % (Manual) 10 % (20-40) L 06/03/18 11:08 Monocytes % (Manual) 8 % (0-10) 06/03/18 11:08 Eosinophils % (Manual) 3 % (0-4) 06/03/18 11:08 Platelet Estimate Normal (NORMAL) 06/03/18 11:08 Hypochromasia (manual) Slight 06/03/18 11:08 Poikilocytosis (manual Slight 06/03/18 11:08 Anisocytosis (manual) Slight 06/03/18 11:08 Ovalocytes Slight 06/03/18 11:08 [place] Cells Slight 06/03/18 11:08 Sodium 140 mmol/L (132-148) 06/04/18 08:49 Potassium 3.8 mmol/L (3.6-5.2) 06/04/18 08:49 Chloride 101 mmol/L (98-107) 06/04/18 08:49 Carbon Dioxide 30 mmol/L (22-30) 06/04/18 08:49 Anion Gap 13 (10-20) 06/04/18 08:49 BUN 32 mg/dL (9-20) H 06/04/18 08:49 Creatinine 1.3 mg/dL (0.8-1.5) 06/04/18 08:49 Est GFR ( Amer) > 60 06/04/18 08:49 Est GFR (Non-Af Amer) 56 06/04/18 08:49 POC Glucose (mg/dL) 254 mg/dL (65-110) H 06/04/18 12:02 Random Glucose 293 mg/dL (75-110) H 06/04/18 08:49 Hemoglobin A1c 10.2 % (4.2-6.5) H 06/02/18 05:18 Calcium 8.8 mg/dl (8.6-10.4) 06/04/18 08:49 Total Bilirubin 1.7 mg/dL (0.2-1.3) H 06/04/18 08:49 AST 30 U/L (17-59) 06/04/18 08:49 ALT 55 U/L (21-72) 06/04/18 08:49 Alkaline Phosphatase 127 U/L (38-126) H 06/04/18 08:49 Total Creatine Kinase 152 U/L (55-170) 06/02/18 17:09 CK-MB (Mass) 3.00 ng/mL (0.0-3.38) 06/02/18 17:09 Troponin I 0.0890 ng/mL (0.00-0.120) 06/02/18 17:09 NT-Pro-B Natriuret Pep 4690 pg/mL (0-900) H 06/02/18 03:38 Total Protein 6.1 g/dL (6.3-8.3) L 06/04/18 08:49 Albumin 3.4 g/dL (3.5-5.0) L 06/04/18 08:49 Globulin 2.7 gm/dL (2.2-3.9) 06/04/18 08:49 Albumin/Globulin Ratio 1.2 (1.0-2.1) 06/04/18 08:49 Triglycerides 60 mg/dL (0-149) D 06/02/18 05:18 Cholesterol 173 mg/dL (0-199) 06/02/18 05:18 LDL Cholesterol Direct 90 mg/dL (0-129) 06/02/18 05:18 HDL Cholesterol 46 mg/dL (30-70) 06/02/18 05:18 Thyroxine (T4) 11.1 ug/dL (5.5-11.0) H 06/02/18 05:18 TSH 3rd Generation 4.30 mIU/L (0.46-4.68) 06/02/18 05:18 Urine Color Yellow (YELLOW) 06/02/18 04:11 Urine Clarity Clear (Clear) 06/02/18 04:11 Urine pH 5.0 (5.0-8.0) 06/02/18 04:11 Ur Specific [place] 1.008 (1.003-1.030) 06/02/18 04:11 Urine Protein Negative mg/dL (NEGATIVE) 06/02/18 04:11 Urine Glucose (UA) 3+ mg/dL (Normal) H 06/02/18 04:11 Urine Ketones Negative mg/dL (NEGATIVE) 06/02/18 04:11 Urine Blood Negative (NEGATIVE) 06/02/18 04:11 Urine Nitrate Negative (NEGATIVE) 06/02/18 04:11 Urine Bilirubin Negative (NEGATIVE) 06/02/18 04:11 Urine Urobilinogen Normal mg/dL (0.2-1.0) 06/02/18 04:11 Ur Leukocyte Esterase Neg Bebe/uL (Negative) 06/02/18 04:11 Urine WBC (Auto) 1 /hpf (0-5) 06/02/18 04:11 Urine RBC (Auto) < 1 /hpf (0-3) 06/02/18 04:11 Urine Opiates Screen Negative (NEGATIVE) 06/02/18 05:28 Urine Methadone Screen Negative (NEGATIVE) 06/02/18 05:28 Ur Barbiturates Screen Negative (NEGATIVE) 06/02/18 05:28 Ur Phencyclidine Scrn Negative (NEGATIVE) 06/02/18 05:28 Ur Amphetamines Screen Negative (NEGATIVE) 06/02/18 05:28 U Benzodiazepines Scrn Negative (NEGATIVE) 06/02/18 05:28 U Oth Cocaine Metabols Positive (NEGATIVE) H 06/02/18 05:28 U Cannabinoids Screen Negative (NEGATIVE) 06/02/18 05:28 - Hospital Course Hospital Course: Patient is a 62 year old male with a past medical history of CHF, asthma, HTN, HLD, DM, CABG, and BPH, who presents to the hospital with complaints of chest pain bilaterally, back pain, and bilateral arm pain, with associated shortness of breath and a productive cough (white phlegm) for the past 3 days. He states his symptoms worsen with respirations, he sleeps 2 pillows, and becomes short of breath after walking less than 1 block. He also complains of bilateral leg swelling for 3 days. He was recently hospitalized at [facility] for similar symptoms last week. He recently ran out of his "lasix, heart, and blood pressure medication" and has not taken these medications for the past 3-4 days. He also admits to using +1gram of cocaine 5 days ago. The patient also complains of one week of abdominal pain worse with eating, with associated burning in his chest and throat. Review of systems positive for chest pain, palpitations, sob, cough, headache, leg swelling, abdominal pain. The patient denies fevers, chills, sore throat, dysphagia, dizziness, changes in vision, nausea/vomiting, diarrhea, dysuria, hematuria, recent sick contacts/illnesses. Patient was admitted for chest pain on 06/02. EKG was done on admission, which showed afib with rvr @134 bpm. a second EKg confirmed the afib with premature ventricular or abberrantly conducted complex, with left axis deviation and Heart rate of 79. Troponin x 3 was negative. Chest Xray shows significant cardiomegaly and no active pulmonary function. BNP:4670. BUN/Cr Patient urine drug screen shows positive for cocaine metabolites. Patient was admitted on telemetry. Cardiology Dr Jeni Walker was consulted. For Chest pain management, patient was given ASA 81mg PO dialy, Crestor 2.5 mg PO HS, Lisinopril 5mg PO daily, Norvasc 5mg PO daily. Patient reported on 06/03 that his chest pain has improved. For management of his dyspnea secondary to CHF exarcebation, lasix 40 mg PO BID was started, and increased to 60mg PO BID. Pt was also given Albuterol /Ipratropium (Duoneb 3 Mg/0.5 Mg (3 Ml) Ud) 3 ml INH RQ6. 2L of O2 via nasal cannula was also given. Echocardiogram was done 06/03, which shows Ejection fraction 45-50% and severe pulmonary congestion. A V/Q scan was performed to rule out pulmonary embolism, which shows low probability for Pulmonary embolism. A lexiscan was performed, with pending results. Patient reported on of improving from his initial complaint of shortness of breath. For diagnosis of afib, patient received Diltiazem 125mg 5 mls/hr IV Q24H. Heart rate came down to 59 bpm 06/02. Diltiazem was discontinued. Heart rate improved. Patient received eliquis 5mg PO BID, ASA 81mg PO Daily and Plavix 75mg PO Qdaily. As per Dr Walker, Plavix was D/C on 06/03 and patient continued taking Eliquis 5mg PO BID and ASA 81 mg PO daily. Patient's diagnosis of Diabetes was managed with accuchecks and ISS/Insulin Human Regular (Novolin R) . Hemoglobin A1C: 10.1. Patient's blood glucose was elevated on hospital course. Metformin 1000 mg PO BID was added on 06/04. Patient's diagnosis of Hypertension was managed with home medications Norvasc 5mg PO daily, Lisinopril 5mg PO daily. Patient's diagnosis of HLD was managed with Crestor 2.5mg PO HS. Lipid panel shows Triglycerides 60, cholestrol 173, LDL 90 and HDL 46. This is a brief summary of the patients hospital course. Please review EMR for complete record. Patient is to be discharge home per Dr. Travis. Patient is to follow up with the [facility] located in the [facility] within one week. Please call can schedule an appointment. Patient is to follow up with Dr. Walker (Cardiology) within two weeks. Please call and schedule an appointment. Patient is to take medications as instructed. Norvasc 5mg PO daily , Eliquis 5mg PO BID, Aspirin 81 mg PO daily, azythromycin 25 mg PO daily for 4 days, Cardizem 30 mg PO QID, Lasix 60mg PO daily, Lisinopril 5mg PO daily. If patient experiences any new or worsening symptoms, please go directly to the nearest emergency department. Upon review of the patient's discharge medications, it was noted that a script was given for Cardizem inadvertently, we attempted to contact the patient, however no number was listed for contact. We reviewed the patient's past hospitalization for any contact information, however we were unsuccessful in contacting the patient. This was discussed with Dr Travis, the attending physician. As per Dr Travis, no further action is required. - Date & Time of H&P Date of H&P: 06/04/18 Time of H&P: 16:20 Discharge Exam - Head Exam Head Exam: ATRAUMATIC, NORMAL INSPECTION, NORMOCEPHALIC - Eye Exam Eye Exam: EOMI, Normal appearance, PERRL - Neck Exam Neck exam: Full Rom, Normal Inspection - Respiratory Exam Respiratory Exam: Clear to PA & Lateral, Wheezes, NORMAL BREATHING PATTERN, UNREMARKABLE. absent: Rales, Rhonchi - Cardiovascular Exam Cardiovascular Exam: Irregular Rhythm, +S1, +S2. absent: Tachycardia, Clicks, Diastolic murmur - GI/Abdominal Exam GI & Abdominal Exam: Normal Bowel Sounds, Tenderness. absent: Distended, Guarding Additional comments: tenderness to palpation epigastric area - Extremities Exam Extremities exam: full ROM Additional comments: no pitting edema on lower extremities noted bilaterally - Back Exam Back exam: FULL ROM - Neurological Exam Neurological exam: Alert, Normal Gait, Oriented x3 - Psychiatric Exam Psychiatric exam: Normal Affect, Normal Mood - Skin Skin Exam: Intact, Normal Color Discharge Plan - Discharge Medications Prescriptions: amLODIPine [Norvasc] 5 mg PO DAILY #30 tab Apixaban [Eliquis] 5 mg PO BID #60 tab Aspirin [Aspirin Chewable] 81 mg PO DAILY #30 chew Azithromycin [Zithromax] 250 mg PO Q24H #4 tab diltiaZEM [Cardizem] 30 mg PO QID #120 tab Furosemide [Lasix] 60 mg PO BID #180 tab Lisinopril [Zestril] 5 mg PO DAILY #30 tab - Follow Up Plan Condition: FAIR Disposition: HOME/ ROUTINE Instructions: Heart Healthy Diet, Atrial Fibrillation (DC), Heart Failure, Adult (DC), Heart Failure Exercise Guide Additional Instructions: Patient is to be discharge home per Dr. Travis. Patient is to follow up with the [facility] located in the [facility] within one week. Please call can schedule an appointment. Patient is to follow up with Dr. Walker (Cardiology) within two weeks. Please call and schedule an appointment. Please take medications as instructed. If patient experiences any new or worsening symptoms, please go directly to the nearest emergency department. Take care and be well. El paciente ser dado de sebastian por el Dr. Travis. El paciente debe realizar un seguimiento con la [facility] [place] [facility] en el rusto [facility] dentro de carmen semana. Por favor llame puede programar carmen tomasz. El paciente debe realizar un seguimiento con el Dr. Walker (Cardiologa) dentro de las dos semanas. Por favor llame y programe carmen tomasz. Por favor tome los medicamentos segn las instrucciones. Si el paciente experimenta sntomas nuevos o que empeoran, vaya directamente al servicio de urgencias ms cercano. Cudate y mantente evangelina. Referrals: [facility] at [facility] [Outside] Jeni Walker MD [Staff Provider] -
--- NOTE | 2018-06-05 18:06 | PCM.HF ---
Heart Failure Core Measure ISIAH Inhibitor Prescribed: Yes AnticoagulationTherapy for Atrial Fibrillation/Atrialflutter: Yes
== END 2018-06-04 15:08 | disposition home or self-care (01) | DRG 127 ==
LOC: C.ER 03:03 → C.9E 04:12 → C.5S 14:04
PROVIDERS: ADMIT Internal Medicine; ATTEND Internal Medicine
DX: I11.0 Hypertensive heart disease with heart failure (principal); J44.9 Chronic obstructive pulmonary disease, unspecified; F14.10 Cocaine abuse, uncomplicated; F17.200 Nicotine dependence, unspecified, uncomplicated; I50.9 Heart failure, unspecified; I48.91 Unspecified atrial fibrillation; N40.0 Benign prostatic hyperplasia without lower urinary tract symptoms; E78.5 Hyperlipidemia, unspecified; Z79.4 Long term (current) use of insulin; Z95.1 Presence of aortocoronary bypass graft; E10.9 Type 1 diabetes mellitus without complications; Z68.21 Body mass index [BMI] 21.0-21.9, adult